=== PATIENT | female | born 1980 | race Hispanic/Latino ===

== ENCOUNTER → 2019-02-14 | Outpatient (CLI) | payer BC | LOC: LAB 06:41 ==

== ENCOUNTER 2019-02-17 08:41 | Outpatient (CLI) | payer BC | END 2019-02-17 08:42 | disposition home or self-care (01) | LOC: LAB 08:41 ==

== ENCOUNTER 2019-02-25 07:35 | Outpatient (CLI) | payer BC | END 2019-02-25 07:36 | disposition home or self-care (01) | LOC: RAD 07:35 | DX: R13.10 Dysphagia, unspecified (principal) ==